=== PATIENT | female | born 1975 | race Hispanic/Latino ===

== ENCOUNTER 2018-06-30 12:23 | Emergency (ER) | payer BC, MEDICAID ==
[~2018-06-30] VITALS: Ht 160 cm; Wt 90.0 kg
[~2018-06-30 12:23] MED LIST: ANTIVERT25 MG OR; LORTAB 1010 MG PO; NAPROSYN500 MG OR; NO; SUDAFED OR; no homemeds
[2018-06-30 12:59] LABS: HEMATOCRIT 41.8 % (37.0-47.0); HEMOGLOBIN 13.9 g/dl (12.0-16.0); IMMATURE GRANULOCYTES 0.4 % (0.0-5.0); MEAN CELL VOLUME 91.7 fL CALC (80.0-100.0); MEAN CORPUSCULAR HGB 30.5 pG CALC (26.0-32.0); MEAN CORPUSCULAR HGB CONC 33.3 g/L CALC (32.0-36.0); NEUT# 7.03 thou/uL (2.00-7.15); RED BLOOD COUNT 4.56 mill/uL (4.20-5.60); RED CELL DISTRI WIDTH 12.8 % (11.5-15.5)
[2018-06-30 13:01] LABS: URINE BILIRUBIN - DIPSTICK NEGATIVE (NEGATIVE); URINE BLOOD DIPSTICK TRACE-INTACT (NEGATIVE); URINE COLOR YELLOW; URINE GLUCOSE - DIPSTICK NEGATIVE (NEGATIVE); URINE KETONE NEGATIVE (NEGATIVE); URINE NITRITE - DIPSTICK NEGATIVE (Negative); URINE PROTEIN - DIPSTICK NEGATIVE (NEG-TRACE); URINE SPECIFIC GRAVITY 1.015; URINE UROBILINOGEN - DIPSTICK 0.2 E.U./dL (0.2)
[2018-06-30 13:03] LABS: URINE CLARITY CLEAR; URINE LEUK ESTERASE SMALL (NEGATIVE)
[2018-06-30 13:11] LABS: URINE SQUAMOUS EPITHELIAL CELL FEW EPI/hpf (0-FEW)
[2018-06-30] MEDS ORDERED: ZOFRAN4 M1 PO (13:39)
[2018-06-30 14:00] LABS: ALBUMIN 3.8 g/dL (3.2-5.0); ALKALINE PHOSPHATASE 97 u/l (38-126); ANION GAP 15 (6-22 (CALC)); BILIRUBIN, TOTAL 0.4 mg/dL (0.0-1.4); BUN 10 mg/dL (7-17); BUN/CREATININE RATIO 14 (12-20 (CALC)); CARBON DIOXIDE 23 mmol/l (22-30); CHLORIDE 110 mmol/l (95-108); CPK 117 u/l (30-165); CREATININE 0.7 mg/dL (0.5-1.0); GFR > 60 ML/MIN (>=60 (CALC)); GFR FOR AFR.AMER. > 60 ML/MIN (>=60 (CALC)); LIPASE 266 u/l (23-300); POTASSIUM 3.6 mmol/l (3.5-5.1); SGOT/AST 28 u/l (14-36); SGPT/ALT 36 u/l (9-52); SODIUM 144 mmol/l (137-146); TOTAL PROTEIN 6.9 g/dL (6.3-8.2)
[2018-06-30 14:20] VITALS: BP 130/59
== END 2018-06-30 14:38 | disposition home or self-care (01) | DRG 641 ==
LOC: ED 12:23
PROVIDERS: Family Medicine
DX: E86.0 Dehydration (principal)

== ENCOUNTER 2020-12-01 17:44 | Emergency (ER) | payer OTHER, BC ==
[~2020-12-01] VITALS: Ht 160 cm; Wt 89.0 kg
[~2020-12-01 17:44] MED LIST changes: +ZOFRAN4 M1 PO
[2020-12-01] MEDS ORDERED: LOSARTAN POTASS50 MG PO (18:43)
[2020-12-01 21:10] VITALS: BP 124/74
[2020-12-01] MEDS ORDERED: IBUPROFEN600 MG PO (21:13)
[2020-12-01] MEDS ORDERED: ORPHENADRINE C100 M1 PO (21:13)
== END 2020-12-01 21:20 | disposition home or self-care (01) | DRG 563 ==
LOC: ED 17:44
DX: S39.012A Strain of muscle, fascia and tendon of lower back, initial encounter (principal); S29.012A Strain of muscle and tendon of back wall of thorax, initial encounter; X50.0XXA Overexertion from strenuous movement or load, initial encounter; Y93.F2 Activity, caregiving, lifting; Y99.0 Civilian activity done for income or pay

== ENCOUNTER 2021-07-06 19:59 | Emergency (ER) | payer OTHER, BC ==
[~2021-07-06 19:59] MED LIST changes: +IBUPROFEN600 MG PO; +LOSARTAN POTASS50 MG PO; +ORPHENADRINE C100 M1 PO
== END 2021-07-07 01:25 | disposition left against medical advice (07) | DRG 951 ==
LOC: ED 19:59 → LWOBS 07-07 00:09
DX: Z53.21 Procedure and treatment not carried out due to patient leaving prior to being seen by health care provider (principal)